=== PATIENT | female | born 1995 | race Caucasian/White ===

== ENCOUNTER 2017-01-15 17:17 | Emergency (ER) | payer OTHER ==
[~2017-01-15 17:17] MED LIST: BENTYL20 MG PO; NAPROSYN500 MG PO; ZOFRAN ODT4 MG PO
[2017-01-15 17:53] LABS: URINE SOURCE CLEAN CATCH
[2017-01-15 17:59] LABS: URINE APPEARANCE CLEAR; URINE BILIRUBIN NEG (NEG); URINE BLOOD NEG (NEG); URINE COLOR YELLOW; URINE GLUCOSE NEG (NEG); URINE KETONE NEG (NEG); URINE LEUKOCYTE ESTERASE NEG (NEG); URINE NITRATE NEG (NEG); URINE PH 6.5 (5-8); URINE PROTEIN NEG (NEG); URINE SPECIFIC GRAVITY 1.022 (1.003-1.035)
== END 2017-01-15 18:21 | disposition home or self-care (01) ==
LOC: CED 17:17
PROVIDERS: Emergency Medicine
DX: O99.89 Other specified diseases and conditions complicating pregnancy, childbirth and the puerperium (principal); R10.2 Pelvic and perineal pain; Z79.1 Long term (current) use of non-steroidal anti-inflammatories (NSAID); Z88.2 Allergy status to sulfonamides; Z88.5 Allergy status to narcotic agent; Z88.8 Allergy status to other drugs, medicaments and biological substances; Z91.040 Latex allergy status
CPT/HCPCS: 81003; 99285

== ENCOUNTER 2017-03-12 07:40 | Emergency (ER) | payer OTHER ==
--- NOTE | ~2017-03-12 | EKG ---
PATIENT: NELLY DEMPSEY UNIT #: [id number] Ventricular Rate: 113 BPM Atrial Rate: 113 BPM P-R Interval: 166 ms QRS Duration: 72 ms Q-T Interval: 330 ms QTC Calculation(Bezet): 452 ms P [place]: 70 degrees Calculated R [place]: 23 degrees Calculated T [place]: 51 degrees Diagnosis Line: Sinus tachycardia Diagnosis Line: Otherwise normal ECG Diagnosis Line: No previous ECGs available Diagnosis Line: Confirmed by RAMY MCKEON MD ([id number]) on 03/12/2017 Diagnosis Line: 10:05:44 AM INTERPRETING MD: LINDA BRITO
--- NOTE | ~2017-03-12 | CT2 ---
[facility] A Service of [facility] RADIOLOGY TEXT RESULTS PATIENT: NELLY DEMPSEY LOCATION: [facility] : [birth year] UNIT #: [id number] AGE: [address]: Carolina Pham SEX: F ORDER DR: [id number] [facility] [address] [place], [place] [address] [id number] E MR#: [id number] Acc #: [id number] NAME: NELLY DEMPSEY : 1995 SEX: F STUDY DATE/TIME: 03/12/2017 10:12 UNIT: [facility] ROOM: STUDY DESCRIPTION: CT Abd and Pelv W Cont Attending Physician: Carolina Pham P.A.-C. Ordering Physician: Carolina Pham P.A.-C. Primary Care Physician: No Primary Care Physician MEDICAL IMAGING REPORT This report is preliminary unless electronic signature is present EXAM CT of the abdomen and pelvis, 03/12/2017. HISTORY Nausea, dizzy, abdomen pain, low pelvic area for 2 days. 01/16. TECHNIQUE [address] of the abdomen and pelvis performed with intravenous administration 80 mL Isovue-370. Enteric contrast not administered. This CT exam was performed with one or more of the following radiation dose reduction techniques: automatic exposure control, adjustment of mA and/or kV according to patient size, and iterative reconstruction. FINDINGS Lung bases clear. Inferior heart and pericardium unremarkable. Liver, gallbladder, spleen, pancreas, adrenal glands, kidneys, unremarkable. CT Pelvis: No inguinal adenopathy. Postoperative changes anterior pelvic wall consistent with recent section. No subcutaneous air or fluid collection. Urinary bladder unremarkable. The uterus is heterogeneous in appearance and mildly enlarged. This probably reflects combination of phase of menstrual cycle and recent gravid state. Uterus measures about 6.2 cm x 6.7 cm x 8.1 cm. Endometrium measures about 11 mm in thickness. No evidence of endometrial air or unusual enhancement. 1.2 cm x 1.9 cm x 1.8 cm right ovarian cyst likely dominant follicle for this menstrual cycle. Relatively localized fluid in the central and right paracentral cul-de-sac. Question subtle peripheral enhancement. It is unclear if this fluid is free or perhaps partially loculated. It measures about 3.5 cm x 4.2 cm x 2.5 cm. It most likely represents physiologic fluid related to menstrual cycle. Possibility of evolving postoperative seroma could be considered. Developing abscess is felt unlikely given overall appearance and lack of internal air. Please correlate with the patient's clinical presentation. Pelvic findings could be further STS. [facility] A Service of [facility] RADIOLOGY TEXT RESULTS PATIENT: NELLY DEMPSEY LOCATION: [facility] : [birth year] UNIT #: [id number] AGE: [address]: Carolina Pham SEX: F ORDER DR: evaluated with ultrasound if warranted. Mildly prominent parametrial vasculature favored to reflect the patient's post gravid status. There is no pelvic or retroperitoneal adenopathy. Distal esophagus, small bowel, appendix, colon unremarkable. Vascular structures show normal caliber aorta. Bony structures show no acute abnormality. IMPRESSION 1. In the central and right paracentral cul-de-sac there is relatively localized, but homogeneous, hypodense fluid measuring 4.2 cm x 3.5 cm x 2.5 cm. No internal air bubbles. Questionable subtle peripheral enhancement. It is unclear if this it is free fluid or somewhat loculated. I see no definite internal septations. This is probably physiologic in nature and related to patient's recent gravid state and operative intervention or perhaps related to the patient's current menstrual cycle. Possibility of evolving postoperative fluid/hematoma/seroma could be considered. Suspicion for abscess is low; but, given the suggestion of subtle peripheral enhancement, developing abscess could be in the differential diagnosis in the appropriate clinical context. Weight should be given clinical assessment. If it would assist in management, pelvic structures could be further evaluated with ultrasound. 2. Heterogeneous mildly enlarged uterus most likely reflecting the patient's state. The endometrium shows no acute-appearing abnormality and is of normal thickness for a patient of this age. 3. Right ovarian cyst measuring up to 1.9 cm in diameter likely the dominant follicle for this menstrual cycle. 4. Gallbladder, pancreas, kidneys, appendix normal. Remainder of alimentary canal unremarkable. 5. Postoperative changes anterior abdominal wall from recent section. No evidence of complication. 1. Dictated by... Tejas Lombardo M.D. THIS IS AN ELECTRONICALLY VERIFIED REPORT Tejas Lombardo M.D. at 03/13/2017 11:32 PM SHARITA/saúl TD: 03/12/2017 13:07 JOB #: [id number] MEDICAL IMAGING REPORT Page 1 of 1 COPY
[2017-03-12 08:26] LABS: BASOPHIL% 0.3 % (0-2.5); EOSINOPHIL# 0.1 X10e3 (0-0.7); EOSINOPHIL% 0.7 % (0.0-7.0); HEMATOCRIT 34.1 % (35.0-45.0); HEMOGLOBIN 11.1 gm/dL (12.0-16.0); LYMPHOCYTE% 7.4 % (17.0-45.0); MEAN CELL VOLUME 79.7 FL (83-96); MEAN CORPUSCULAR HEMOGLOBIN 25.9 PG (28-34); MEAN CORPUSCULAR HGB CONC 32.5 g/dL (30-36); MEAN PLATELET VOLUME 8.9 FL (6.5-11.5); MONOCYTE# 1.1 X10e3 (0-1.0); MONOCYTE% 8.3 % (3.0-12.0); NEUTROPHIL# 10.7 X10e3 (1.5-7.1); NEUTROPHIL% 83.3 % (40-75); PLATELET COUNT 222 X10e3 (140-420); RED BLOOD COUNT 4.28 X10e (3.90-5.30); RED CELL DISTRIBUTION WIDTH 20.6 % (11.0-15.5); WHITE BLOOD COUNT 12.9 X10e3 (4.0-10.5)
[2017-03-12 08:27] LABS: DIFF IND NO
[2017-03-12 09:08] LABS: BUN/CREATININE RATIO 21.66; CALCIUM SERUM 8.8 mg/dL (8.4-10.2); CREATININE SERUM 0.6 mg/dL (0.6-1.4); GLOM FILT RATE Estimated 128.5 mL/min (>60); POTASSIUM 3.5 mmol/L (3.5-5.1)
[2017-03-12 09:42] LABS: URINE SOURCE CLEAN CATCH
[2017-03-12 09:47] LABS: URINE APPEARANCE CLOUDY; URINE BILIRUBIN NEG (NEG); URINE BLOOD 1+ (NEG); URINE COLOR YELLOW; URINE GLUCOSE NEG (NEG); URINE KETONE NEG (NEG); URINE LEUKOCYTE ESTERASE 2+ (NEG); URINE NITRATE NEG (NEG); URINE PROTEIN NEG (NEG); URINE SPECIFIC GRAVITY 1.025 (1.003-1.035)
[2017-03-12 09:52] LABS: CULTURE INDICATED? YES; URINE BACTERIA AUWI NEG (NEGATIVE)
[2017-03-12 10:00] LABS: URINE MUCUS PRESENT
[2017-03-12 10:01] LABS: URINE SQUAMOUS EPITHELIAL CELL FEW /[HPF]; UWBCS1 AUWI 50-100 (0-5)
[2017-03-14 08:38] LABS: CHLAMYDIA TRACH Not Detected (Not Detected); N GONOR Detected (Not Detected)
== END 2017-03-12 12:31 | disposition hospice, home (50) ==
LOC: CED 07:40
PROVIDERS: Physician Assistant
DX: N71.9 Inflammatory disease of uterus, unspecified (principal); F41.9 Anxiety disorder, unspecified; F32.9 Major depressive disorder, single episode, unspecified; F17.290 Nicotine dependence, other tobacco product, uncomplicated; Z88.2 Allergy status to sulfonamides; Z91.040 Latex allergy status; Z88.5 Allergy status to narcotic agent
CPT/HCPCS: 36415; 74177; 80048; 81003; 82947; 83605; 84703; 85025; 87040; 87086; 87491; 87591; 87808; 87905; 93005; 96361; 96374; 99285; J1885; J2543; J2765; Q9967

== ENCOUNTER 2017-03-19 11:37 | Emergency (ER) | payer OTHER | END 2017-03-19 13:03 | disposition home or self-care (01) | LOC: CED 11:37 → CFTX 11:37 | DX: A54.9 Gonococcal infection, unspecified (principal); F41.9 Anxiety disorder, unspecified; F32.9 Major depressive disorder, single episode, unspecified; Z85.41 Personal history of malignant neoplasm of cervix uteri; Z79.899 Other long term (current) drug therapy; Z88.2 Allergy status to sulfonamides; Z88.5 Allergy status to narcotic agent; Z91.040 Latex allergy status; Z88.8 Allergy status to other drugs, medicaments and biological substances | CPT/HCPCS: 96372; 99283; J0696 ==